=== PATIENT | male | born 1985 | race Two or more races ===

== ENCOUNTER 2016-08-24 11:39 | Inpatient (IN) | payer OTHER ==
[2016-08-24 11:48] VITALS: BMI 20.9
[2016-08-24] MEDS ORDERED: ONDANSETRON 4 MG/2 ML VIAL IVPUSH ONE ×2 (12:27→14:16)
[2016-08-24] MEDS ORDERED: SODIUM CHLORIDE 1,000 ML IV STA ×2 (12:27→14:07)
--- NOTE | 2016-08-24 12:27 | PDOC ---
History of Present Illness - General History Source: Patient, Old Records Exam Limitations: No Limitations - History of Present Illness Initial Comments: 08/24/16 12:13 The patient is a 31-year-old male, accompanied by home health aide, with a significant past medical history of traumatic brain injury status post PEG tube insertion, small bowel obstruction, asthma and chronic back pain who presents to the emergency department for further evaluation of abdominal pain for the past 2-3 days. Patient states that ever since his PEG tube was removed, he has been experiencing intermittent diffuse abdominal crampy sensations with associated nausea and vomiting. Last emesis episode was this morning and was bile-yellow like, as per home health aide. No urinary complaints. No fever, chills, weakness, chest pain, cough, shortness of breath. Patient was in this ED on 04/06/2016 for similar complaints. He was ultimately admitted for questionable appendicitis. Allergies: No Known Drug Allergies Past Surgical History: Abdominal surgery s/p Small bowel obstruction. PEG tube insertion. Social History: Current everyday cigarette smoker (approximately 4 cigarettes/ day). No EtOH and recreational drug use. Primary Care Physician: Dr. Phil Colin <Priya Nj - Last Filed: 08/24/16 17:12> - General History Source: Patient, Old Records Exam Limitations: No Limitations <Mary Thomas - Last Filed: 08/24/16 17:18> - General Chief Complaint: Nausea/Vomiting Stated Complaint: Nausea/Vomiting Time Seen by Provider: 08/24/16 12:13 Past History <Priya Nj - Last Filed: 08/24/16 17:12> - Past Medical History Anemia: No Asthma: Yes Cancer: No Cardiac Disorders: No CVA: Yes (Brain injury?) COPD: Yes CHF: No Dementia: No Diabetes: No GI Disorders: Yes (Had a Peg Tube) Disorders: No HTN: No Hypercholesterolemia: No Liver Disease: No Seizures: No Thyroid Disease: No - Surgical History Abdominal Surgery: Yes (peg tube insertion/removal) Appendectomy: No Cardiac Surgery: No Cholecystectomy: No Lung Surgery: No Neurologic Surgery: Yes Orthopedic Surgery: No - Psycho/Social/Smoking Cessation Hx Suicidal Ideation: No Smoking History: Current every day smoker Have you smoked in the past 12 months: Yes Number of Cigarettes Smoked Daily: 4 Information on smoking cessation initiated: No 'Breaking Loose' booklet given: 04/06/16 Hx Alcohol Use: No Drug/Substance Use Hx: No Substance Use Type: Marijuana Hx Substance Use Treatment: No <Mary Thomas - Last Filed: 08/24/16 17:18> - Past Medical History Allergies/Adverse Reactions: Allergies Allergy/AdvReac Type Severity Reaction Status Date / Time No Known Allergies Allergy Verified 08/24/16 11:48 Home Medications: Ambulatory Orders Gabapentin 300 mg PO BID 04/07/16 Albuterol Sulfate Inhaler - [Ventolin Hfa Inhaler -] 1 - 2 inh PO QID PRN Amantadine HCl [Symmetrel -] 100 mg PO DAILY 08/24/16 Naproxen 500 mg PO BID 08/24/16 Omeprazole 40 mg PO DAILY 08/24/16 Salmeterol/Fluticasone [Advair 250Mcg/50Mcg -] 1 inh IH BID 08/24/16 Review of Systems - Review of Systems Able to Perform ROS?: Yes Comments:: 08/24/16 12:13 CONSTITUTIONAL: Absent: fever, chills, diaphoresis, generalized weakness, malaise, loss of appetite HEENT: Absent: rhinorrhea, nasal congestion, throat pain, throat swelling, difficulty swallowing, mouth swelling, ear pain, eye pain, visual Changes CARDIOVASCULAR: Absent: chest pain, syncope, palpitations, irregular heart rate , lightheadedness, peripheral edema RESPIRATORY: Absent: cough, shortness of breath, dyspnea with exertion, orthopnea, wheezing, stridor, hemoptysis GASTROINTESTINAL: Present: Abdominal Pain. Nausea. Vomiting. Absent: abdominal distension, diarrhea, constipation, melena, hematochezia GENITOURINARY: Absent: dysuria, frequency, urgency, hesitancy, hematuria, flank pain, genital pain MUSCULOSKELETAL: Absent: myalgia, arthralgia, joint swelling SKIN: Absent: rash, itching, pallor HEMATOLOGIC/IMMUNOLOGIC: Absent: easy bleeding, easy bruising, lymphadenopathy, frequent infections ENDOCRINE:Absent: unexplained weight gain, unexplained weight loss, heat intolerance, cold intolerance NEUROLOGIC: Absent: headache, focal weakness or paresthesias, dizziness, unsteady gait, seizure, mental status changes, bladder or bowel incontinence PSYCHIATRIC: Absent: anxiety, depression, suicidal or homicidal ideation, hallucinations <Priya Nj - Last Filed: 08/24/16 17:12> *Physical Exam - Vital Signs Last Vital Signs Temp Pulse Resp BP Pulse Ox 97.6 F 65 18 137/104 100 08/24/16 11:46 08/24/16 11:46 08/24/16 11:46 08/24/16 11:46 08/24/16 11:46 - Physical Exam Comments: 08/24/16 12:13 GENERAL: Well developed, well nourished. Awake and alert. No acute distress. HEENT: Normocephalic, atraumatic. PERRLA, EOMI. No conjunctival pallor. Sclera are non-icteric. Moist mucous membranes. Oropharynx is clear. NECK: Supple. Full ROM. No JVD. CARDIOVASCULAR: Regular rate and rhythm. No murmurs, rubs, or gallops. PULMONARY: No evidence of respiratory distress. Lungs clear to auscultation bilaterally. No wheezing, rales or rhonchi. ABDOMINAL: Soft. Diffuse abdominal tenderness to palpation. Non-distended. No rebound or guarding. No organomegaly. Normoactive bowel sounds. MUSCULOSKELETAL: Normal range of motion at all joints. No bony deformities or tenderness. No CVA tenderness. EXTREMITIES: No cyanosis. No clubbing. No edema. No calf tenderness. SKIN: Warm and dry. Normal capillary refill. No rashes. No jaundice. NEUROLOGICAL: Alert, awake, appropriate. Cranial nerves 2-12 intact. . Normal speech. PSYCHIATRIC: Cooperative. Good eye contact. Appropriate mood and affect. <Christopher Njine - Last Filed: 08/24/16 17:12> - Vital Signs Last Vital Signs Temp Pulse Resp BP Pulse Ox 97.6 F 65 18 137/104 100 08/24/16 11:46 08/24/16 11:46 08/24/16 11:46 08/24/16 11:46 08/24/16 11:46 <Mary Thomas - Last Filed: 08/24/16 17:18> ED Treatment Course - LABORATORY CBC & Chemistry Diagram: 08/24/16 12:41 08/24/16 12:41 - RADIOLOGY Radiograph Interpretation: 08/24/16 14:07 EXAM: RAD/CHEST X-RAY PORTABLE Interpreted by Dr. Damion Kwiatek IMPRESSION: No evidence of active pulmonary disease EXAM: CT/ABDOMEN PELVIS CT WITH CONTR Interpreted by Dr. Khris Hood IMPRESSION: Coronal and sagittal reformatted images were obtained 96 cc of Visipaque was intravenously injected Comparison: Prior CT scan of the abdomen and pelvis dated 04/06/2016 Visualized lung base appears unremarkable and the heart is within normal limits in size. Evaluation of the liver, spleen, pancreas , gallbladder, both adrenal glands and both kidneys appear unremarkable. The stomach is adequately distended without gross wall thickening Evaluation of the bowel loops is limited due to lack of oral contrast administration. There is no evidence of small bowel obstruction. There is nondistention of the colon limiting evaluation of its wall. There is suggestion of thickening of the proximal sigmoid colon wall as well as thickening of the proximal descending colon including the splenic flexure and thickening of the ascending colon wall, mainly distally. The terminal ileum is grossly unremarkable. Appendix is not identified. Fluid-filled small bowel loops in the lower pelvis which is nonspecific. Prostate gland is within normal limits in size. Partially distended urinary bladder without wall thickening. Perirectal and pericecal fat is clear. Visualized osseous structures appear intact. - Medications Given in the ED: ED Medications Discontinued Medications Generic Name Dose Route Start Last Admin Trade Name Freq PRN Reason Stop Dose Admin Ondansetron HCl 4 mg 08/24/16 12:27 08/24/16 12:36 Zofran Injection IVPUSH 08/24/16 12:28 4 mg ONCE ONE Administration <Priya Nj - Last Filed: 08/24/16 17:12> - LABORATORY CBC & Chemistry Diagram: 08/24/16 12:41 08/24/16 12:41 <Mary Thomas - Last Filed: 08/24/16 17:18> Medical Decision Making - Medical Decision Making 08/24/16 17:[address] Siri Gomez <Priya Nj - Last Filed: 08/24/16 17:12> - Medical Decision Making 08/24/16 12:44 31-year-old male with history of traumatic brain injury, asthma and chronic back and lower extremity pain presents the emergency Department with complaints of diffuse abdominal pain and nausea with vomiting today. Differential diagnosis includes but is not limited to: Gastroparesis, small bowel obstruction , gastritis, pancreatitis, dehydration, electrolyte abnormality, toxic/ metabolic derangement. Plan: 1. Labs 2. Urine analysis 3. IV fluids for hydration 4. Antiemetics 5. Observe and reevaluate 08/24/16 17:16 Addendum: Labs were reviewed and are noted in the EMR. The WBC was markedly elevated and therefore Ct scan of the abdomen and pelvis was ordered and subsequently showed colitis and ?ileus. The patient was re-evaluated. he is feeling improved although he says that he still feels dehydrated and weak. His abdominal pain is improved. Will panculture and start on levaquin and flagyl and admit to med/surg. <Mary Thomas - Last Filed: 08/24/16 17:18> *DC/Admit/Observation/Transfer - Attestations Scribe Attestion: 08/24/16 12:56 Documentation prepared by Priya Nj, acting as medical director/head team physician for Mary Thomas MD. <Priya Nj - Last Filed: 08/24/16 17:12> - Discharge Dispostion Admit: Yes - Attestations Physician Attestion: 08/24/16 12:45 I, Dr. Mary Thomas, attest that the scribes documentation that appears above has been prepared under my direction and personally reviewed by me in its entirety. I confirmed that the note above accurately reflects all work, treatment, procedures, and medical decision-making performed by me. <Mary Thomas - Last Filed: 08/24/16 17:18> Diagnosis at time of Disposition: Abdominal pain, Colitis - Discharge Dispostion Condition at time of disposition: Stable - Referrals Referrals: Hilary Colin [Primary Care Provider] -
[2016-08-24] MEDS ORDERED: ONDANSETRON 4 MG/2 ML VIAL ONE ×3 (12:33→19:30)
[2016-08-24] MEDS ORDERED: ALBUTEROL SO4 2.5/IPRATROPIUM 0.5 INH SOL 3 ML VIAL.NEB. NEB ONE ×2 (13:00→13:06)
[2016-08-24 13:42] LABS: BASOPHIL 0.2 % (0-2.0); EOSINOPHIL 0.8 % (0-4.5); MCH 31.2 pg (25.7-33.7); MCHC 33.4 g/dl (32.0-35.9); MEAN CELL VOLUME 93.3 fl (80-96); MEAN PLT VOLUME 9.7 fl (7.5-11.1); PLATELET COUNT 219 K/MM3 (134-434); RDW 14.5 % (11.9-15.9); WHITE BLOOD COUNT 16.7 K/mm3 (4.0-10.0)
[2016-08-24 14:15] LABS: ALBUMIN 5.3 g/dl (3.4-5.0); ALK PHOS 128 U/L (45-117); ANION GAP 15 (8-16); BILIRUBIN,TOTAL 0.5 mg/dL (0.2-1.0); CO2 28 mmol/L (21-32); COCKROFT - GAULT 85.83; CREATININE 1.2 mg/dL (0.7-1.3); GLUCOSE,RANDOM 104 mg/dL (74-106); MAGNESIUM 1.9 mg/dL (1.8-2.4); PHOSPHOROUS 2.5 mg/dL (2.5-4.9); SGOT/AST 121 U/L (15-37); SGPT/ALT 50 U/L (12-78); TOT PROT 8.4 g/dl (6.4-8.2)
[2016-08-24 14:26] LABS: URINE APPEARANCE CLEAR; URINE BILIRUBIN NEGATIVE (NEGATIVE); URINE BLOOD NEGATIVE (NEGATIVE); URINE COLOR YELLOW; URINE GLUCOSE (UA) NEGATIVE (NEGATIVE); URINE KETONE 1+ (NEGATIVE); URINE LEUK ESTERASE NEGATIVE (NEGATIVE); URINE NITRITE NEGATIVE (NEGATIVE); URINE UROBILINOGEN NEGATIVE E.U./dl (0.2-1.0)
[2016-08-24] MEDS ORDERED: METOCLOPRAMIDE HCL INJECTION 10 MG/2 ML VIAL IVPB ONE (15:07)
[2016-08-24] MEDS ORDERED: METOCLOPRAMIDE HCL INJECTION 10 MG/2 ML VIAL ONE (15:09)
[2016-08-24 15:14] LABS: URINE PROTEIN 2+ (NEGATIVE)
[2016-08-24 15:40] LABS: URINE MARIJUANA THC POSITIVE ng/ml (CUTOFF=50)
[2016-08-24 16:24] LABS: URINE BACTERIA RARE /hpf (NONE SEEN); URINE MUCUS MANY; URINE RBC 8 /hpf (0-3); URINE WBC 1 /hpf (3-5)
[2016-08-24] MEDS ORDERED: LEVOFLOXACIN 750 MG IVPB 150 ML IVPB ONE ×2 (17:13→17:33)
[2016-08-24] MEDS ORDERED: METRONIDAZOLE 500 MG PREMIXED 100 ML IVPB ONE ×2 (17:14→17:33)
[2016-08-24] MEDS ORDERED: SODIUM CHLORIDE 500 ML IV ONE (19:28)
[2016-08-24] MEDS ORDERED: ONDANSETRON 4 MG/2 ML VIAL IVPB ONE (19:29)
[2016-08-24] MEDS ORDERED: morphine CARPU-JECT 2 MG/1 ML DISP.SYRIN IVPUSH PRN (21:03)
[2016-08-24] MEDS ORDERED: SODIUM CHLORIDE 0.45% 1,000 ML IV SCH (21:15)
--- NOTE | 2016-08-24 22:54 | HP ---
Admitting History and Physical - Admission Chief Complaint: Abdominal pain History of Present Illness: Pt is a 31 y/o male with PMH significant for traumatic brain injury(including PEG tube insertion), SBO, asthma and chronic back pain. Pt rpeseneted to the ER bc of abdominal associated w/ N/V for the past few days. However pt states that this has been goind on for a few months now intermittently. In the ER pt found to have elevated WBC however he was afebrile and CT scan abd/pelvis showed colitis and ileus. Pt denies and fever chills or diarrhea/constipation. History Source: Patient - Past Medical History ATHLETIC DIRECTOR: Yes: Other (Traumatic brain injury) Pulmonary: Yes: Asthma Musculoskeletal: Yes: Other (RUE & LLE weakness from injury Chronic back pain) - Past Surgical History Additional Past Surgical History: PEG insertion Exploratory lap surgery - Smoking History Smoking history: Current every day smoker Have you smoked in the past 12 months: Yes Aproximately how many cigarettes per day: 4 - Alcohol/Substance Use Hx Alcohol Use: No - Social History History of Recent Travel: No Home Medications - Allergies Allergies/Adverse Reactions: Allergies Allergy/AdvReac Type Severity Reaction Status Date / Time No Known Allergies Allergy Verified 08/24/16 11:48 - Home Medications Home Medications: Ambulatory Orders Gabapentin 300 mg PO BID 04/07/16 Albuterol Sulfate Inhaler - [Ventolin HFA Inhaler -] 1 - 2 inh PO QID PRN Amantadine HCl [Symmetrel -] 100 mg PO DAILY 08/24/16 Omeprazole 40 mg PO DAILY 08/24/16 Salmeterol/Fluticasone [Advair 250Mcg/50Mcg -] 1 inh IH BID 08/24/16 Family Disease History - Family Disease History Family History: Unremarkable Review of Systems - Review of Systems Constitutional: reports: Weakness Eyes: reports: No Symptoms HENT: reports: No Symptoms Neck: reports: No Symptoms Cardiovascular: reports: No Symptoms Respiratory: reports: No Symptoms Gastrointestinal: reports: Abdominal Pain, Nausea, Vomiting Genitourinary: reports: No Symptoms Physical Examination Vital Signs: Vital Signs Temperature 99 F 08/24/16 22:09 Pulse Rate 77 08/24/16 22:09 Respiratory Rate 20 08/24/16 22:09 Blood Pressure 100/50 08/24/16 22:09 O2 Sat by Pulse Oximetry (%) 98 08/24/16 20:02 Constitutional: Yes: Anxious Eyes: Yes: WNL HENT: Yes: WNL Neck: Yes: WNL Cardiovascular: Yes: WNL Respiratory: Yes: WNL Gastrointestinal: Yes: WNL, Normal Bowel Sounds, Soft Musculoskeletal: Yes: Muscle Weakness Extremities: Yes: WNL Edema: No Neurological: Yes: WNL, Alert, Oriented, Other (Slurred speech) Problem List - Problems (1) Abdominal pain Assessment/Plan: Due to elevated WBC will start pt on IV levaquin/flagyl for colitis Will also advance diet slowly due to ileus. Cont IVF GI consult Code(s): R10.9 - UNSPECIFIED ABDOMINAL PAIN (2) Asthma Assessment/Plan: Stable Code(s): J45.909 - UNSPECIFIED ASTHMA, UNCOMPLICATED
[2016-08-25] MEDS: DEXTROSE 5%-0.45% SALINE 1,000 ML IV SCH ×2 (03:17→21:15)
[2016-08-25] MEDS: METRONIDAZOLE 500 MG PREMIXED 100 ML IVPB SCH ×3 (03:18→18:43)
[2016-08-25 07:54] LABS: BASOPHIL 0.3 % (0-2.0); EOSINOPHIL 0.9 % (0-4.5); MCH 31.3 pg (25.7-33.7); MCHC 33.5 g/dl (32.0-35.9); MEAN CELL VOLUME 93.4 fl (80-96); MEAN PLT VOLUME 9.3 fl (7.5-11.1); NEUTROPHILS 63.6 % (42.8-82.8); PLATELET COUNT 167 K/MM3 (134-434); RDW 14.4 % (11.9-15.9); WHITE BLOOD COUNT 11.1 K/mm3 (4.0-10.0)
[2016-08-25 08:34] LABS: ALBUMIN 3.9 g/dl (3.4-5.0); ANION GAP 13 (8-16); CALCIUM 8.7 mg/dL (8.5-10.1); CO2 22 mmol/L (21-32); GLUCOSE,RANDOM 91 mg/dL (74-106)
[2016-08-25 08:39] LABS: ALK PHOS 95 U/L (45-117); BILIRUBIN,TOTAL 0.5 mg/dL (0.2-1.0); SGOT/AST 63 U/L (15-37); SGPT/ALT 36 U/L (12-78); TOT PROT 6.4 g/dl (6.4-8.2)
[2016-08-25] MEDS ORDERED: LEVOFLOXACIN 500 MG IVPB 100 ML IVPB SCH (10:00)
[2016-08-25] MEDS: GABAPENTIN 300 MG CAPSULE (FP) PO SCH ×2 (10:33→21:13)
[2016-08-25] MEDS: PANTOPRAZOLE 40 MG TABLET (FP) PO SCH (10:33)
[2016-08-25] MEDS: BUDESONIDE/FORMETEROL FUMARATE 80/4.5 mcg INHALER IH SCH ×2 (10:34→21:14)
[2016-08-25] MEDS: HEPARIN NA (PORCINE) 5,000 UNITS/ML 1ML VIAL SQ SCH ×2 (10:34→21:13)
[2016-08-25] MEDS: AMANTADINE HCL 100 MG TABLET PO SCH (10:34)
--- NOTE | 2016-08-25 20:11 | PN ---
Progress Note, Physician History of Present Illness: Pt still vomiting today w/ abdominal discomfort - Current Medication List Current Medications: Active Medications Amantadine HCl (Symmetrel -) 100 mg PO DAILY [facility] Last Admin: 08/25/16 10:34 Dose: 100 mg Budesonide/Formoterol Fumarate (Symbicort 80/4.5mcg -) 2 puff IH BID [facility] Last Admin: 08/25/16 10:34 Dose: 2 inh Diphenhydramine HCl (Benadryl Injection -) 25 mg IVPUSH Q6H PRN PRN Reason: ITCHING Last Admin: 08/25/16 03:15 Dose: 25 mg Gabapentin (Neurontin -) 300 mg PO BID [facility] Last Admin: 08/25/16 10:33 Dose: 300 mg Heparin Sodium (Porcine) (Heparin -) 5,000 unit SQ BID [facility] Last Admin: 08/25/16 10:34 Dose: 5,000 unit Dextrose/Sodium Chloride (D5-1/2ns -) 1,000 mls @ 75 mls/hr IV ASDIR [facility] Last Admin: 08/25/16 03:17 Dose: 75 mls/hr Metronidazole (Flagyl 500mg Premixed Ivpb -) 100 mls @ 100 mls/hr IVPB Q8H-IV [facility] Last Admin: 08/25/16 18:43 Dose: 100 mls/hr Levofloxacin (Levaquin 500 Mg Premixed Ivpb -) 100 mls @ 100 mls/hr IVPB DAILY [facility] Last Admin: 08/25/16 10:33 Dose: 100 mls/hr Morphine Sulfate (Morphine Injection -) 2 mg IVPUSH Q6H PRN PRN Reason: PAIN Last Admin: 08/24/16 21:00 Dose: 2 mg Ondansetron HCl (Zofran Injection) 4 mg IVPB Q6H PRN PRN Reason: nausea Stop: 08/27/16 19:25 Pantoprazole Sodium (Protonix -) 40 mg PO DAILY [facility] Last Admin: 08/25/16 10:33 Dose: 40 mg - Objective Vital Signs: Vital Signs Temperature 98.7 F 08/25/16 13:57 Pulse Rate 66 08/25/16 13:57 Respiratory Rate 20 08/25/16 12:01 Blood Pressure 122/66 08/25/16 13:57 O2 Sat by Pulse Oximetry (%) 96 08/25/16 12:01 Constitutional: Yes: No Distress Neck: Yes: Supple Cardiovascular: Yes: WNL, Regular Rate and Rhythm Respiratory: Yes: WNL, Regular, CTA Bilaterally Gastrointestinal: Yes: WNL, Normal Bowel Sounds, Soft Labs: CBC, BMP 08/25/16 06:30 08/25/16 06:30 Problem List - Problems (1) Abdominal pain Code(s): R10.9 - UNSPECIFIED ABDOMINAL PAIN Assessment/Plan 1. Abdominal pain Pt w/ h/o PEG CT scan showed colitis Cont IVF and IV antibxs As per GI EGD in am 2. Asthma Cont symbicort 3. Chronic back pain Cont gabapentin
--- NOTE | 2016-08-25 20:11 | CON.GI ---
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 He now returns with the same problem. He feels certain that marijuana is not the problem. However, whenever he has to stop smoking his symptoms resolve. He is currently feeling better and no longer vomiting. - History Source History Provided By: Patient, Medical Record - Past Medical History VERMIN EXTERMINATOR: Yes: Other (Traumatic brain injury) Pulmonary: Yes: Asthma Musculoskeletal: Yes: Other (RUE & LLE weakness from injury) - Alcohol/Substance Use Hx Alcohol Use: No - Smoking History Smoking history: Current every day smoker Have you smoked in the past 12 months: Yes Aproximately how many cigarettes per day: 4 - Social History History of Recent Travel: No Home Medications - Allergies Allergies/Adverse Reactions: Allergies Allergy/AdvReac Type Severity Reaction Status Date / Time No Known Allergies Allergy Verified 08/24/16 11:48 - Home Medications Home Medications: Ambulatory Orders Gabapentin 300 mg PO BID 04/07/16 Albuterol Sulfate Inhaler - [Ventolin Hfa Inhaler -] 1 - 2 inh PO QID PRN Amantadine HCl [Symmetrel -] 100 mg PO DAILY 08/24/16 Naproxen 500 mg PO BID 08/24/16 Omeprazole 40 mg PO DAILY 08/24/16 Salmeterol/Fluticasone [Advair 250Mcg/50Mcg -] 1 inh IH BID 08/24/16 Physical Exam-GI Vital Signs: Vital Signs Temperature 98.7 F 08/25/16 13:57 Pulse Rate 66 08/25/16 13:57 Respiratory Rate 20 08/25/16 12:01 Blood Pressure 122/66 08/25/16 13:57 O2 Sat by Pulse Oximetry (%) 96 08/25/16 12:01 Constitutional: Yes: Well Nourished, Anxious Neck: Yes: Supple Cardiovascular: Yes: Regular Rate and Rhythm Respiratory: Yes: CTA Bilaterally Gastrointestinal Inspection: Yes: WNL ...Auscultate: Yes: Normoactive Bowel Sounds ...Palpate: Yes: Soft, Tenderness, Epigastium. No: Tenderness ...Percussion: Yes: Dullness Neurological: Yes: Alert, Oriented Labs: CBC, BMP 08/25/16 06:30 08/25/16 06:30 Imaging - Results Cat Scan: Report Reviewed (?colitis colon collapsec) Assessment/Plan Patient with likely cyclic vomiting syndrome secondary to marijuana use. (UTox ( +)) Will sched EGD for tomorrow at 2PM to better assess and r/o other possible etiologies. Antibiotics stopped. CT with questionable colitis-clinically asymptomatic. Morphine stopped-can aggravate nausea and unclear source of pain. If EGD negative patient can be discharged Advice regarding cessation of marijuana provded.
[2016-08-25] MEDS: ONDANSETRON 4 MG/2 ML VIAL IVPB PRN (21:20)
[2016-08-26] MEDS: LEVOFLOXACIN 500 MG IVPB 100 ML IVPB SCH ×2 (01:47→10:31)
[2016-08-26] MEDS: DEXTROSE 5%-0.45% SALINE 1,000 ML IV SCH (01:47)
[2016-08-26] MEDS ORDERED: METRONIDAZOLE 500 MG PREMIXED 100 ML IVPB SCH (02:00)
[2016-08-26] MEDS: ONDANSETRON 4 MG/2 ML VIAL IVPB PRN (03:29)
[2016-08-26 08:44] LABS: BASOPHIL 0.3 % (0-2.0); EOSINOPHIL 1.9 % (0-4.5); MCH 31.7 pg (25.7-33.7); MCHC 34.4 g/dl (32.0-35.9); MEAN PLT VOLUME 9.1 fl (7.5-11.1); NEUTROPHILS 66.8 % (42.8-82.8); PLATELET COUNT 169 K/MM3 (134-434); WHITE BLOOD COUNT 6.6 K/mm3 (4.0-10.0)
[2016-08-26 09:16] LABS: ALK PHOS 100 U/L (45-117); ANION GAP 12 (8-16); BILIRUBIN,TOTAL 0.6 mg/dL (0.2-1.0); CALCIUM 8.9 mg/dL (8.5-10.1); CO2 27 mmol/L (21-32); COCKROFT - GAULT 93.63; CREATININE 1.1 mg/dL (0.7-1.3); GLUCOSE,RANDOM 112 mg/dL (74-106); SGOT/AST 39 U/L (15-37); SGPT/ALT 37 U/L (12-78); TOT PROT 6.6 g/dl (6.4-8.2)
[2016-08-26] MEDS: HEPARIN NA (PORCINE) 5,000 UNITS/ML 1ML VIAL SQ SCH (10:30)
[2016-08-26] MEDS: PANTOPRAZOLE 40 MG TABLET (FP) PO SCH (10:31)
[2016-08-26] MEDS: GABAPENTIN 300 MG CAPSULE (FP) PO SCH (10:31)
[2016-08-26] MEDS: BUDESONIDE/FORMETEROL FUMARATE 80/4.5 mcg INHALER IH SCH (10:32)
[2016-08-26] MEDS: AMANTADINE HCL 100 MG TABLET PO SCH (10:32)
--- NOTE | 2016-08-26 14:22 | PN ---
Progress Note (short form) - Note Progress Note: ADDENDUM: S/P EGD FOR CYCLIC VOMITING INFLAMMATION NOTED IN THE CARDIA, SECONDAR TO VOMITING. NO ETIOLOGY FOUND FOR n/v OTHER THAN CHRONIC MARIJUANA USE WILL SEE OPT AND F/U WITH BIOPSY RESULTS ADVANCE DIET AND DISCHARGE WHEN HE IS ABLE TO TAKE PO. FF
[2016-08-26 15:08] VITALS: TEMP 98.6
[2016-08-26 19:44] VITALS: BP 134/77; PULSE 64
--- NOTE | 2016-08-27 15:49 | DS ---
Physical Examination Vital Signs: Vital Signs Temperature 98.6 F 08/26/16 18:00 Pulse Rate 64 08/26/16 18:00 Respiratory Rate 18 08/26/16 21:00 Blood Pressure 134/77 08/26/16 18:00 O2 Sat by Pulse Oximetry (%) 97 08/26/16 21:00 Constitutional: Yes: Anxious Eyes: Yes: WNL HENT: Yes: WNL Neck: Yes: WNL Cardiovascular: Yes: WNL Respiratory: Yes: WNL Gastrointestinal: Yes: WNL, Normal Bowel Sounds, Soft Labs: CBC, BMP 08/26/16 07:24 08/26/16 07:24 Discharge Summary Reason For Visit: COLITIS; ABDOMINAL PAIN Colitis Abdominal pain Ileus Asthma Traumatic brain injury Hospital Course: Pt admitted w/ abdominal pain nausea/vomiting. Pt was found to have ileus and colitis on ct scan abd. Pt started on IV levaquin/flagyl due to increased WBC and lactic acid wc both returned to normal. Pt seen by GI and had EGD. Pt's diet was advanced and he was dc'ed home in stable condition. It is thought this is secondary to chronic marijuana use. Condition: Fair - Instructions Diet, Activity, Other Instructions: Regular diet See Dr Colin in 1 week [phone] Referrals: Hilary Colin [Primary Care Provider] - Disposition: HOME - Home Medications Comprehensive Discharge Medication List: Ambulatory Orders Gabapentin 300 mg PO BID 04/07/16 Albuterol Sulfate Inhaler - [Ventolin HFA Inhaler -] 1 - 2 inh PO QID PRN Amantadine HCl [Symmetrel -] 100 mg PO DAILY 08/24/16 Omeprazole 40 mg PO DAILY 08/24/16 Salmeterol/Fluticasone [Advair 250Mcg/50Mcg -] 1 inh IH BID 08/24/16
--- NOTE | 2016-08-29 12:52 | PATH ---
Surgical Pathology Report Patient Name: SHERON ANDERSON [facility]. Rec. #: [id number] /Age/Gender: 1985 (Age: 31) / M Account: [id number] Location: [address] [place] [address] Taken: 08/26/2016 Received: 08/26/2016 Reported: 08/29/2016 Physicians: Anders Malloy M.D. Specimen(s) Received A: BX DUODENUM & DUODENAL BULB B: BX ANTRUM C: BX CARDIA Clinical History Vomiting, nausea Gastritis Final Diagnosis A. DUODENUM AND DUODENAL BULB, BIOPSY: DUODENAL MUCOSA WITH CHRONIC INFLAMMATION, [place] HYPERPLASIA AND GASTRIC METAPLASIA CONSISTENT WITH PEPTIC DUODENITIS. NO HISTOLOGIC EVIDENCE OF GLUTEN SENSITIVE ENTEROPATHY (CELIAC DISEASE). B. STOMACH, ANTRUM, BIOPSY: GASTRIC ANTRAL MUCOSA WITH MODERATE CHRONIC GASTRITIS AND MILD REACTIVE GASTROPATHY WITH FOVEOLAR HYPERPLASIA. IMMUNOSTAIN FOR H. PYLORI IS NEGATIVE FOR ORGANISMS. C. STOMACH, CARDIA, BIOPSY: GASTRIC OXYNTIC MUCOSA WITH MODERATE CHRONIC GASTRITIS. IMMUNOSTAIN FOR H. PYLORI IS NEGATIVE FOR ORGANISMS. Electronically Signed Ino Pruitt M.D. Gross Description A. Received in formalin, labeled "biopsy duodenum and duodenal bulb" are 4 hitchcock, irregular portions of soft tissue ranging from 0.2-0.4 cm in greatest dimension. The specimens are submitted in toto in one cassette. B. Received in formalin, labeled "biopsy antrum" are 2 hitchcock, irregular portions of soft tissue measuring 0.2 and 0.7 cm in greatest dimension. The specimens are submitted in toto in one cassette. C. Received in formalin, labeled "biopsy cardia" are 2 hitchcock, irregular portions of soft tissue measuring 0.2 and 0.7 cm in greatest dimension. The specimens are submitted in toto in one cassette. /08/26/201608/26/2016
== END 2016-08-26 21:00 | disposition home or self-care (01) | DRG 247 ==
LOC: JER 11:39 → JERBED 17:19 → J6S 20:35
PROVIDERS: ADMIT Internal Medicine; ATTEND Internal Medicine
PROC: 0DB98ZX Excision of Duodenum, Via Natural or Artificial Opening Endoscopic, Diagnostic (ICD-10-PCS; principal; 2016-08-26 14:00)
DX: K56.7 Ileus, unspecified (principal); K52.9 Noninfective gastroenteritis and colitis, unspecified; G43.A0 Cyclical vomiting, in migraine, not intractable; T40.7X5A Adverse effect of cannabis (derivatives), initial encounter; Z87.820 Personal history of traumatic brain injury; F17.210 Nicotine dependence, cigarettes, uncomplicated; J44.9 Chronic obstructive pulmonary disease, unspecified
CPT/HCPCS: 36415; 71010-TC; 74177-TC; 80053; 80307; 81003; 81015; 83605; 83690; 83735; 84100; 85025; 87040; 87086; 88305-TC; 99285-25; J1644